=== PATIENT | female | born 1970 | race Two or more races ===

== ENCOUNTER 2019-04-18 09:59 | Outpatient (CLI) | payer MEDICARE | END 2019-04-18 23:59 | disposition home or self-care (01) | LOC: CFH 09:59 | PROVIDERS: ATTEND Family Medicine | DX: Z12.31 Encounter for screening mammogram for malignant neoplasm of breast (principal); N64.89 Other specified disorders of breast; Z95.0 Presence of cardiac pacemaker | CPT/HCPCS: 77067 ==

== ENCOUNTER 2019-05-17 15:33 | Outpatient (CLI) | payer MEDICARE | END 2019-05-17 23:59 | disposition home or self-care (01) | LOC: CFH 15:33 → RAD 23:59 | PROVIDERS: ATTEND Internal Medicine | DX: R91.1 Solitary pulmonary nodule (principal); J84.10 Pulmonary fibrosis, unspecified; I70.0 Atherosclerosis of aorta; I30.0 Acute nonspecific idiopathic pericarditis; I45.81 Long QT syndrome; Z95.0 Presence of cardiac pacemaker | CPT/HCPCS: 71046; 71250 ==

== ENCOUNTER → 2020-05-05 | Outpatient (CLI) | payer MEDICARE | END | disposition home or self-care (01) | LOC: CFH 13:32 | PROVIDERS: ATTEND Internal Medicine Cardiovascular Disease | DX: I36.1 Nonrheumatic tricuspid (valve) insufficiency (principal); Z95.0 Presence of cardiac pacemaker | CPT/HCPCS: 93306 ==

== ENCOUNTER → 2020-06-18 | Outpatient (CLI) | payer MEDICARE | END | disposition home or self-care (01) | LOC: CFH 11:14 | PROVIDERS: ATTEND Nurse Practitioner | DX: K59.00 Constipation, unspecified (principal) | CPT/HCPCS: 74018 ==

== ENCOUNTER → 2020-08-31 | Outpatient (CLI) | payer MEDICARE | END | disposition home or self-care (01) | LOC: STAR 10:53 | PROVIDERS: ATTEND Internal Medicine Cardiovascular Disease | DX: Z20.822 Contact with and (suspected) exposure to COVID-19 (principal) | CPT/HCPCS: U0003; U0005 ==

== ENCOUNTER 2020-09-03 09:48 | Day surgery (SDC) | payer MEDICARE ==
[~2020-09-03] VITALS: Ht 157.5 cm; Wt 59.0 kg
[2020-09-03 10:20] VITALS: BP 107/76
[2020-09-03 10:29] LABS: BASOPHILS % (AUTO) 0 % (0-1); EOSINOPHILS % (AUTO) 2 % (1-7); LYMPHOCYTES % (AUTO) 24 % (22-44); MEAN CORPUSCULAR HEMOGLOBIN 33.8 pg (27.0-34.8); MEAN CORPUSCULAR HGB CONC 33.7 g/dL (32.4-35.8); MEAN PLATELET VOLUME 7.7 fL (7.4-10.4); MONOCYTES % (AUTO) 8 % (2-9); NEUTROPHILS % (AUTO) 67 % (42-75); PLATELET COUNT 272 x10^3/uL (130-400); RED BLOOD COUNT 4.05 x10^6/uL (3.82-5.3)
[2020-09-03 10:30] LABS: MD NO
[2020-09-03] MEDS ORDERED: SODIUM CHLORIDE 0.9% 1,000 ML IV SCH (10:30)
[2020-09-03] MEDS ORDERED: PLEASE ENTER HEIGHT AND WEIGHT MC SCH (10:30)
[2020-09-03 10:40] LABS: ANION GAP 4 mmol/L (5-15); CALCIUM 8.9 mg/dL (8.5-10.1); CHLORIDE 109 mmol/L (98-107); CREATININE 0.93 mg/dL (0.55-1.02)
[2020-09-03] MEDS ORDERED: TIOT4MIS5 INH (10:45)
[2020-09-03] MEDS ORDERED: COLC0.6T37 PO (10:45)
[2020-09-03] MEDS ORDERED: LEVO50TA5 PO (10:45)
[2020-09-03] MEDS ORDERED: TRAZ-175 PO (10:45)
[2020-09-03] MEDS ORDERED: ESTR0.5T PO (10:45)
[2020-09-03] MEDS ORDERED: METO25TA91 PO (10:45)
[2020-09-03] MEDS ORDERED: FLEC50TA25 PO (10:45)
[2020-09-03] MEDS ORDERED: LINA72CA PO (10:45)
[2020-09-03] MEDS ORDERED: POTA20TA6 PO (10:45)
[2020-09-03] MEDS ORDERED: HYDROCHLOROTH12.5 MG PO (10:45)
[2020-09-03] MEDS ORDERED: FENTANYL PF 100 MCG/2ML ONE (12:17)
[2020-09-03] MEDS ORDERED: MIDAZOLAM 1 MG/ML, 2ML ONE (12:17)
[2020-09-03] MEDS ORDERED: MIDAZOLAM 1 MG/ML, 5ML ONE (12:19)
[2020-09-03] MEDS ORDERED: CEFAZOLIN 1,000 MG ONE ×2 (12:20→12:23)
[2020-09-03] MEDS ORDERED: LIDOCAINE 1%, 20ML ONE (12:20)
[2020-09-03] MEDS ORDERED: DEXAMETHASONE 4 MG/ML, 1ML ONE ×2 (12:23→12:55)
[2020-09-03] MEDS ORDERED: ROCURONIUM 10MG/ML,5ML ONE (12:24)
[2020-09-03] MEDS ORDERED: PROPOFOL 10 MG/ML, 20ML ONE (12:27)
[2020-09-03] MEDS ORDERED: ONDANSETRON 2MG/ML, 2ML ONE ×2 (12:55)
[2020-09-03] MEDS ORDERED: MEPERIDINE/PF 25MG/ML,1ML ONE (13:29)
[2020-09-03] MEDS ORDERED: Hold all anticoagulants for 24 hours MC PRN (13:30)
[2020-09-03] MEDS ORDERED: DIPHENHYDRAMINE 50 MG/ML, 1ML IVPush PRN ×2 (13:30)
[2020-09-03] MEDS ORDERED: ALBUTEROL SULFATE 2.5 MG/3 ML NPPB PRN (13:30)
[2020-09-03] MEDS ORDERED: ONDANSETRON 2MG/ML, 2ML IVPush PRN (13:30)
[2020-09-03] MEDS ORDERED: hydrALAzine 20 MG/ML, 1ML IV PRN (13:30)
[2020-09-03] MEDS ORDERED: EPHEDRINE 50 MG/ML, 1ML IVPush PRN (13:30)
[2020-09-03] MEDS ORDERED: FENTANYL PF 100 MCG/2ML IV PRN (13:30)
[2020-09-03] MEDS ORDERED: MIDAZOLAM 1 MG/ML, 2ML IV PRN (13:30)
[2020-09-03] MEDS ORDERED: PROMETHAZINE 12.5 MG SUPP PR PRN (13:30)
[2020-09-03] MEDS ORDERED: MEPERIDINE/PF 25MG/0.5ML IVPush PRN (13:30)
[2020-09-03] MEDS ORDERED: DIAZEPAM 5 MG/ML, 2ML IVPush PRN (13:30)
[2020-09-03] MEDS ORDERED: PROMETHAZINE 25 MG/ML, 1ML IVPush PRN (13:30)
[2020-09-03] MEDS ORDERED: LABETALOL 5MG/ML, 20ML IV PRN (13:30)
[2020-09-03] MEDS ORDERED: OXYcodone 5 MG/5 ML ORAL.SOL UDC PO PRN (13:30)
[2020-09-03] MEDS ORDERED: HYDROmorphone 1 MG/ML, 1ML INJ IVPush PRN (13:30)
[2020-09-03] MEDS ORDERED: ACETAMINOPHEN 325 MG TABLET PO PRN ×2 (13:30)
[2020-09-03] MEDS ORDERED: ACETAMINOPHEN 325 MG TABLET ONE (14:20)
[2020-09-03] MEDS ORDERED: CEPH750C9 PO (14:33)
[2020-09-03] MEDS ORDERED: TRAZODONE 100MG TABLET PO SCH (21:00)
[2020-09-03] MEDS ORDERED: SODIUM CHLORIDE FLUSH 10ML SYR IVF SCH (21:00)
[2020-09-04] MEDS ORDERED: METOPROLOL SUCCINATE 25 MG TAB.ER.24H PO SCH (09:00)
[2020-09-04] MEDS ORDERED: LINACLOTIDE PO SCH (09:00)
[2020-09-04] MEDS ORDERED: HYDROCHLOROTHIAZIDE 12.5 MG CAPSULE PO SCH (09:00)
[2020-09-04] MEDS ORDERED: LEVOTHYROXINE 50 MCG TABLET PO SCH (09:00)
[2020-09-04] MEDS ORDERED: TIOTROPIUM BROMIDE INH SCH (09:00)
[2020-09-04] MEDS ORDERED: POTASSIUM CHLORIDE 20 MEQ TAB.ER.PRT PO SCH (09:00)
[2020-09-04] MEDS ORDERED: ESTRADIOL 0.5 MG TABLET PO SCH (09:00)
[2020-09-04] MEDS ORDERED: FLECAINIDE 50MG TABLET PO SCH (09:00)
== END 2020-09-03 15:34 | disposition home or self-care (01) ==
LOC: CACL 09:48
PROVIDERS: ATTEND Internal Medicine Cardiovascular Disease
DX: Z45.010 Encounter for checking and testing of cardiac pacemaker pulse generator [battery] (principal); I49.5 Sick sinus syndrome; I45.81 Long QT syndrome; I47.1 Supraventricular tachycardia; F12.10 Cannabis abuse, uncomplicated; Z79.890 Hormone replacement therapy; Z79.899 Other long term (current) drug therapy; Z88.5 Allergy status to narcotic agent
CPT/HCPCS: 33228; 36415; 71046; 80048; 85025; C1785; J0690; J1100; J2175; J2250; J2405; J2704; J3010

== ENCOUNTER 2020-10-07 09:25 | Outpatient (CLI) | payer MEDICARE ==
[~2020-10-07 09:25] MED LIST: CEPH750C9 PO; COLC0.6T37 PO; ESTR0.5T PO; FLEC50TA25 PO; HYDROCHLOROTH12.5 MG PO; LEVO50TA5 PO; LINA72CA PO; METO25TA91 PO; POTA-143 PO; TIOT4MIS5 INH; TRAZ-175 PO
== END 2020-10-07 23:59 | disposition home or self-care (01) ==
LOC: RAD 09:25
PROVIDERS: ATTEND Nurse Practitioner
DX: R13.10 Dysphagia, unspecified (principal); R91.1 Solitary pulmonary nodule; J84.10 Pulmonary fibrosis, unspecified; Z95.0 Presence of cardiac pacemaker
CPT/HCPCS: 71250; 74230

== ENCOUNTER 2020-12-25 15:43 | Outpatient (CLI) | payer MEDICARE | END 2020-12-25 23:59 | disposition home or self-care (01) | LOC: CVU 15:43 | PROVIDERS: ATTEND Physician Assistant Medical | DX: I08.8 Other rheumatic multiple valve diseases (principal); I31.9 Disease of pericardium, unspecified | CPT/HCPCS: 93306; 93356 ==

== ENCOUNTER → 2021-01-20 | Outpatient (CLI) | payer MEDICARE | END | disposition home or self-care (01) | LOC: STAR 14:41 | PROVIDERS: ATTEND Internal Medicine Cardiovascular Disease | DX: Z20.822 Contact with and (suspected) exposure to COVID-19 (principal) | CPT/HCPCS: U0003; U0005 ==